=== PATIENT | female | born 1955 | race Hispanic/Latino ===

== ENCOUNTER 2018-01-12 19:49 | Emergency (ER) | payer MEDICARE ==
--- NOTE | 2018-01-12 20:55 | XRay Report ---
FINAL REPORT PROCEDURE: XR CHEST 1V AP TECHNIQUE: Chest radiograph anteroposterior view. CPT 05681 HISTORY: MIKE COMPARISON: No prior studies are available for comparison. FINDINGS: Heart: Normal. Mediastinum/Vessels: Normal. Lungs/Pleural space: Normal. Bony thorax: No acute osseous abnormality. Life support devices: A right-sided chest port is noted with catheter terminating at the level of right atrium.. IMPRESSION: No acute pulmonary process..
[2018-01-12 21:02] LABS: Basophils # (Auto) 0.1 K/mm3 (0.0-0.1); Basophils % (Auto) 1.1 % (0.0-1.8); Eosinophils # (Auto) 0.1 K/mm3 (0.0-0.4); Eosinophils % (Auto) 1.1 % (0.0-4.3); Hematocrit 40.9 % (30.3-42.9); Hemoglobin 13.4 gm/dl (10.1-14.3); Lymphocytes # (Auto) 1.4 K/mm3 (1.2-5.4); Lymphocytes % (Auto) 27.1 % (13.4-35.0); Mean Corpuscular HGB Conc 33 % (30-34); Mean Corpuscular Hemoglobin 30 pg (28-32); Mean Corpuscular Volume 90 fl (79-97); Monocytes # (Auto) 0.6 K/mm3 (0.0-0.8); Monocytes % (Auto) 11.3 % (0.0-7.3); Red Blood Count 4.53 M/mm3 (3.65-5.03); Red Cell Distribution Width 16.6 % (13.2-15.2)
[2018-01-12 21:03] LABS: Platelet Count 133 K/mm3 (140-440)
[2018-01-12 21:18] LABS: BUN/Creatinine Ratio 19; Blood Urea Nitrogen 27 mg/dL (7-17); Calcium 8.3 mg/dL (8.4-10.2); Hemolysis Index 17
[2018-01-12] MEDS ORDERED: DUONEB *Not for PRN Use IH ONE (21:27)
[2018-01-12] MEDS ORDERED: DELTASONE PO ONE (21:27)
[2018-01-12] MEDS ORDERED: LASIX IV ONE ×2 (21:27→21:28)
[2018-01-12] MEDS ORDERED: SUBLIMAZE IV ONE ×2 (21:28→21:45)
[2018-01-12 22:07] LABS: Alanine Aminotransferase 18 units/L (7-56); Albumin 3.7 g/dL (3.9-5)
[2018-01-12 22:08] LABS: Bilirubin,Direct < 0.2 mg/dL (0-0.2)
--- NOTE | 2018-01-12 22:52 | Emergency Department Report ---
HPI - General Chief Complaint: Dyspnea/Respdistress Time Seen by Provider: 01/12/18 20:53 - HPI HPI: The patient is a 62-year-old female who presents for evaluation of abdominal pain. The patient has a history of pancreatitis, COPD, and CHF. She reports left upper quadrant abdominal pain for the past 2 days, sharp in quality, 10/10 in severity, exacerbated with retching, and associated with nausea without emesis. She says that she has also experienced mild to moderate severity dyspnea for the past one day, exacerbated with exertion, and improvement rest. The patient denies fever, trauma to the abdomen or chest, cough, syncope, hemoptysis, hematemesis, unilateral leg swelling, dark tarry stool, dysuria, hematuria, flank pain, genital discharge, inability to pass flatus. ED Past Medical Hx - Past Medical History Hx CVA: Yes Hx Congestive Heart Failure: Yes Hx Diabetes: Yes Hx Renal Disease: Yes (No dialysis) Additional medical history: Pancreatitis. Pulmonary Hypertension - Surgical History Hx Cholecystectomy: Yes Additional Surgical History: Hiatal Hernia repair. B/L knee replacement - Social History Smoking Status: Current Every Day Smoker Substance Use Type: Alcohol - Medications Home Medications: Home Medications Medication Instructions Recorded Confirmed Last Taken Type Ambrisentan [Letairis] 1 tab PO DAILY 04/10/16 04/10/16 Unknown History Furosemide 1 tab PO DAILY 04/10/16 04/10/16 Unknown History Hydromorphone HCl [Dilaudid] 1 tab PO TID 04/10/16 04/10/16 Unknown History Levothyroxine Sodium 1 tab PO DAILY 04/10/16 04/10/16 Unknown History Metolazone 1 tab PO DAILY 04/10/16 04/10/16 Unknown History Oxybutynin Chloride 1 tab PO DAILY 04/10/16 04/10/16 Unknown History Oxycodone HCl [Oxaydo] 5 mg PO Q6HR PRN 04/10/16 04/10/16 Unknown History Oxycodone HCl/Acetaminophen 1 each PO Q6HR PRN #20 tablet 04/10/16 Unknown Rx [Percocet 10/325 mg] Pantoprazole Sodium 1 tab PO DAILY 04/10/16 04/10/16 Unknown History Pregabalin [Lyrica] 1 tab PO TID 04/10/16 04/10/16 Unknown History Promethazine [Phenergan 6.25 mg/5 10 ml PO Q6H PRN #200 ml 04/10/16 Unknown Rx ml ORAL LIQ] Sildenafil Citrate [Revatio] 2 tab PO TID 04/10/16 04/10/16 Unknown History Trazodone HCl [traZODone] 1 tab PO HS 04/10/16 04/10/16 Unknown History ALBUTEROL Inhaler [ProAir HFA 2 puff IH QID PRN #1 inhalation 01/12/18 Unknown Rx Inhaler] Cyclobenzaprine HCl [Flexeril 5 MG 5 mg PO Q8HR PRN #10 tab 01/12/18 Unknown Rx TAB] predniSONE [Deltasone] 20 mg PO QDAY #5 tab 01/12/18 Unknown Rx ED Review of Systems ROS: Stated complaint: SOB Other details as noted in HPI Constitutional: denies: fever ENT: denies: throat or neck pain Respiratory: denies: cough reports shortness of breath Cardiovascular: denies: chest pain Endocrine: denies unexplained weight loss or gain Gastrointestinal:reports abdominal pain, nausea Genitourinary: denies: dysuria Musculoskeletal: denies: leg swelling Skin: denies: rash Neurological: denies: headache Hematological/Lymphatic: denies: easy bleeding or easy bruising Psych: denies sadness or hopelessness Physical Exam - Physical Exam Vital Signs: Vital Signs 01/12/18 01/12/18 20:04 20:34 Temperature 98.5 F Pulse Rate 88 83 Respiratory 24 22 Rate Blood Pressure 128/71 O2 Sat by Pulse 100 95 Oximetry Physical Exam: General: well-nourished, well-developed, no acute distress Head: Normocephalic, atraumatic Eyes: normal sclera ENT: Mucous membranes are pink and moist Neck: trachea midline, neck supple, No neck stiffness, no cervical adenopathy Respiratory: Breath sounds equal bilaterally, mild expiratory wheezing present to the apical lung sen bilaterally, no decrease in breath sounds, no rales or rhonchi, no costal retractions, no respiratory distress Cardio: S1 and S2 present, no murmurs, rubs, gallops, capillary refill is brisk Abdomen: Normoactive bowel sounds, soft abdomen, left upper quadrant tenderness to palpation present, no rigidity, no guarding or rebound tenderness Chest WALL/Back: No tenderness to palpation of the chest wall, no CVA tenderness with percussion Musc: No pitting edema Skin: No rash Neuro: no facial drooping, normal speech Psych: Normal affect ED Course Vital Signs 01/12/18 01/12/18 20:04 20:34 Temperature 98.5 F Pulse Rate 88 83 Respiratory 24 22 Rate Blood Pressure 128/71 O2 Sat by Pulse 100 95 Oximetry ED Medical Decision Making - Lab Data Result diagrams: 01/12/18 20:35 01/12/18 20:35 - Medical Decision Making The patient was seen and examined by myself. The patient is placed on a site monitor and continuous pulse ox. On initial evaluation, the patient was found to be in no distress. Evaluation orders are placed. The patient was given prednisone and a breathing treatment for treatment of her COPD exacerbation. Lab results were non-emergent including WBC, hemoglobin, hematocrit, lipase. X-ray of the chest is unremarkable. The patient was reevaluated and reported that their symptoms were improved. The patient is stable for discharge with outpatient follow-up. The patient is given follow-up and return instructions. The patient expressed understanding and agreed with the plan. The patient is discharged in stable condition. Critical care attestation.: If time is entered above; I have spent that time in minutes in the direct care of this critically ill patient, excluding procedure time. ED Disposition Clinical Impression: Acute exacerbation of chronic obstructive pulmonary disease (COPD), Acute abdominal pain in left upper quadrant, Mild dehydration Disposition: -01 TO HOME OR SELFCARE Is pt being admited?: No Does the pt Need Aspirin: No Condition: Stable Instructions: Chronic Obstructive Pulmonary Disease (ED), Acute Abdominal Pain (ED) Referrals: ASHLEY SOLIZ MD [Primary Care Provider] - 3-5 Days Time of Disposition: 23:53
[2018-01-13 01:35] VITALS: BP 133/89
== END 2018-01-13 01:32 | disposition home or self-care (01) ==
LOC: ED 19:49
DX: J44.1 Chronic obstructive pulmonary disease with (acute) exacerbation (principal); E86.0 Dehydration; R10.12 Left upper quadrant pain; I50.9 Heart failure, unspecified; E11.9 Type 2 diabetes mellitus without complications; F17.200 Nicotine dependence, unspecified, uncomplicated; Z86.73 Personal history of transient ischemic attack (TIA), and cerebral infarction without residual deficits
CPT/HCPCS: 36415; 71045; 80048; 80074; 83690; 83880; 84484; 85025; 93005; 93010; 94640; 96374; 96375; 99285; J1940; J3010; J7512